=== PATIENT | male | born 1950 | race Caucasian/White ===

== ENCOUNTER 2016-11-23 11:24 | Day surgery (SDC) | payer MEDICARE, OTHER ==
[~2016-11-23 11:24] MED LIST: Lactated Ringers 1,000 ML IV SCH
--- NOTE | 2016-11-23 12:41 | PCM.PREANE ---
Preanesthetic Assessment - Anesthesia/Transfusion/Family Hx Anesthesia History: Prior Anesthesia Without Reaction Other Type of Anesthesia Reaction Comment: Denies any problems with anesthesia in the past. Family History of Anesthesia Reaction: No Transfusion History: No Prior Transfusion(s) - Review of Systems General: No Symptoms Pulmonary: No Symptoms Cardiovascular: No Symptoms Gastrointestinal: No Symptoms Neurological: No Symptoms Other: Reports: None - Physical Assessment NPO Status Date: 11/22/16 NPO Status Time: 19:00 O2 Sat by Pulse Oximetry: 97 Respiratory Rate: 16 Vital Signs: Last Vital Signs Temp 36.8 C 11/23/16 11:31 Pulse 65 11/23/16 11:31 Resp 16 11/23/16 11:31 BP 154/90 H 11/23/16 11:31 Pulse Ox 97 11/23/16 11:31 Height: 1.88 m Weight: 103.873 kg ASA Class: 2 Mental Status: Alert & Oriented x3 Airway Class: Mallampati = 1 Dentition: Reports: [place](s) ROM/Head Extension: Full Lungs: Clear to Auscultation, Normal Respiratory Effort Cardiovascular: Regular Rate, Regular Rhythm - Allergies Allergies/Adverse Reactions: Allergies Allergy/AdvReac Type Severity Reaction Status Date / Time No Known Allergies Allergy Verified 07/29/13 11:07 - Anesthesia Plan Pre-Op Medication Ordered: None - Acknowledgements Anesthesia Type Planned: MAC Pt an Appropriate Candidate for the Planned Anesthesia: Yes Alternatives and Risks of Anesthesia Discussed w Pt/Guardian: Yes Pt/Guardian Understands and Agrees with Anesthesia Plan: Yes PreAnesthesia Questionnaire - Past Health History Medical/Surgical History: Denies Medical/Surgical History Cardiovascular History: Reports: Hypertension Gastrointestinal History: Reports: Colon Polyp Genitourinary History: Reports: BPH Psychiatric History: Reports: Anxiety, Depression - Past Surgical History Head Surgeries/Procedures: Reports: None GI Surgical History: Reports: Colonoscopy, Hernia, Abdominal - SUBSTANCE USE Smoking Status *Q: Never Smoker Days Per Week of Alcohol Use: 2 Number of Drinks Per Day: 0 Total Drinks Per Week: 0 Recreational Drug Use History: No - HOME MEDS Home Medications: Home Meds Aspirin [Indy Chewable] 81 mg PO DAILY 07/29/13 [History] Dutasteride/Tamsulosin HCl [Mariela 0.5-0.4 MG] 1 tab PO DAILY 07/29/13 [History] FLUoxetine HCl [Prozac] 20 mg PO ACBRK 07/29/13 [History] Lisinopril 10 mg PO BRK 07/29/13 [History] - CURRENT (IN HOUSE) MEDS Current Meds: Current Medications Lactated Ringer's (Ringers, Lactated) 1,000 mls @ 125 mls/hr IV ASDIRECTED JOSE E Last Admin: 11/23/16 12:00 Dose: 125 mls/hr
[2016-11-23] MEDS ORDERED: Lidocaine 2% 5 ML SDV ONE (14:02)
[2016-11-23] MEDS ORDERED: fentaNYL 100 MCG/2 ML SDV ONE (14:03)
[2016-11-23] MEDS ORDERED: Midazolam 1 MG/ML 2 ML SDV ONE (14:03)
[2016-11-23] MEDS ORDERED: Propofol 200 MG/20 ML SDV ONE (14:03)
--- NOTE | 2016-11-23 15:24 | PCM.OPNOTE ---
- General Post-Op/Procedure Note Date of Surgery/Procedure: 11/23/16 Operative Procedure(s): Colonoscopy with cold, sigmoid, rectosigmoid and rectal polypectomies Pre Op Diagnosis: Personal history of colon polyps. Post-Op Diagnosis: Sigmoid, rectosigmoid and rectal polyps. Sigmoid diverticulosis. Anesthesia Technique: MAC (ASA II) Primary Surgeon: Christian Casas Engine Repairer Production: Kelin Nash Condition: Good Free Text/Narrative:: Dictation [id number] CPT CODE [id number]
[2016-11-23] MEDS ORDERED: Lactated Ringers 1,000 ML IV SCH (15:30)
--- NOTE | 2016-11-23 15:31 | PCM.POSTAN ---
POST ANESTHESIA ASSESSMENT - MENTAL STATUS Mental Status: Alert, Oriented - RESPIRATORY Respiratory Status: Respiratory Rate WNL, Airway Patent, O2 Saturation Stable - CARDIOVASCULAR CV Status: Pulse Rate WNL, Blood Pressure Stable - GASTROINTESTINAL GI Status: No Symptoms - PAIN Pain Score: 0 - POST OP HYDRATION Hydration Status: Adequate & Stable
--- NOTE | 2016-11-23 15:41 | PCM48HPAN ---
Post Anesthesia Note - EVALUATION WITHIN 48HRS OF ANESTHETIC Vital Signs in Normal Range: Yes Patient Participated in Evaluation: Yes Respiratory Function Stable: Yes Airway Patent: Yes Cardiovascular Function Stable: Yes Hydration Status Stable: Yes Pain Control Satisfactory: Yes Nausea and Vomiting Control Satisfactory: Yes Mental Status Recovered: Yes
[2016-11-23 16:07] VITALS: BP 129/68
--- NOTE | 2016-11-26 14:10 | OR ---
SURGEON: Christian Casas M.D. DATE OF PROCEDURE: 11/23/2016 OPERATION PERFORMED: Colonoscopy with cold sigmoid, rectosigmoid, and rectal polypectomies. ANESTHESIA: MAC. ASA CLASSIFICATION: II. PREOPERATIVE DIAGNOSIS: Personal history of colon polyps. POSTOPERATIVE DIAGNOSES: 1. Polyps encountered in the sigmoid colon, rectosigmoid junction, and rectum. 2. Sigmoid diverticulosis. DESCRIPTION OF PROCEDURE: The patient was taken to the endoscopy room and positioned on the endoscopy table in the left lateral decubitus position. Time-out was called for appropriate identification of the patient and procedure. Monitored anesthesia care was provided. The colonoscope was inserted into the rectum and advanced with moderate difficulty to the cecum where the colonoscope was retroflexed to visualize the ascending colon from below. The colonoscope was then straightened and slowly withdrawn. The cecum, ascending colon, hepatic flexure, transverse colon, splenic flexure, and descending colon showed no tumors, polyps, diverticula, or angiodysplastic changes. Moderate sigmoid diverticular disease was noted. Small polyps were encountered in the sigmoid colon, rectosigmoid junction, and rectum. All polyps were removed with the cold biopsy forceps and sent for separate histologic analysis. The colonoscope was withdrawn to the rectum and retroflexed to visualize the anal orifice from above. Again, no tumors or polyps were noted in the rectum. Moderate hemorrhoidal changes are noted, but no acute bleeding. The colonoscope was then straightened, the rectum aspirated, and the colonoscope removed. The patient tolerated the procedure well and was taken to recovery room in stable condition. MELISSA / YAO /[id number]
== END 2016-11-23 16:05 | disposition home or self-care (01) ==
LOC: MW.SDS 11:24
PROVIDERS: ATTEND Surgery
DX: Z12.11 Encounter for screening for malignant neoplasm of colon (principal); D12.5 Benign neoplasm of sigmoid colon; K62.1 Rectal polyp; Z86.010 Personal history of colon polyps; K57.30 Diverticulosis of large intestine without perforation or abscess without bleeding; Z79.82 Long term (current) use of aspirin; Z79.899 Other long term (current) drug therapy; Z98.890 Other specified postprocedural states
CPT/HCPCS: 45380; 88305; J2250; J3010; J7120; J2704

== ENCOUNTER 2020-01-15 10:05 | Day surgery (SDC) | payer MEDICARE, OTHER ==
[~2020-01-15 10:05] MED LIST changes: +Midazolam 1 MG/ML 2 ML SDV ONE; +Propofol 200 MG/20 ML SDV ONE
--- NOTE | 2020-01-15 10:47 | PCM.PREANE ---
Preanesthetic Assessment - Anesthesia/Transfusion/Family Hx Anesthesia History: Prior Anesthesia Without Reaction Other Type of Anesthesia Reaction Comment: Denies any problems with anesthesia in the past. Family History of Anesthesia Reaction: No Transfusion History: No Prior Transfusion(s) - Review of Systems General: No Symptoms Pulmonary: No Symptoms Cardiovascular: No Symptoms Gastrointestinal: No Symptoms Neurological: No Symptoms Other: Reports: None - Physical Assessment NPO Status Date: 01/14/20 Vital Signs: Last Vital Signs Temp 97.7 F 01/15/20 10:28 Pulse 71 01/15/20 10:28 Resp 16 01/15/20 10:28 BP 142/83 H 01/15/20 10:28 Pulse Ox 97 01/15/20 10:28 Height: 6 ft 2 in Weight: 104.326 kg ASA Class: 2 Mental Status: Alert & Oriented x3 Airway Class: Mallampati = 2 Dentition: Reports: Normal Dentition ROM/Head Extension: Full Lungs: Clear to Auscultation, Normal Respiratory Effort Cardiovascular: Regular Rate, Regular Rhythm - Allergies Allergies/Adverse Reactions: Allergies Allergy/AdvReac Type Severity Reaction Status Date / Time No Known Allergies Allergy Verified 01/11/20 12:40 - Blood Blood Available: No - Anesthesia Plan Pre-Op Medication Ordered: None - Acknowledgements Anesthesia Type Planned: General Anesthesia (tiva) Pt an Appropriate Candidate for the Planned Anesthesia: Yes Alternatives and Risks of Anesthesia Discussed w Pt/Guardian: Yes Pt/Guardian Understands and Agrees with Anesthesia Plan: Yes Additional Comments: PMH: htn PreAnesthesia Questionnaire - Past Health History Medical/Surgical History: Denies Medical/Surgical History HEENT History: Reports: None Cardiovascular History: Reports: Hypertension Respiratory History: Reports: Sleep Apnea Other Respiratory History: uses CPAP Gastrointestinal History: Reports: Colon Polyp Genitourinary History: Reports: BPH Musculoskeletal History: Reports: None Neurological History: Reports: None Psychiatric History: Reports: Anxiety, Depression Endocrine/Metabolic History: Reports: None Hematologic History: Reports: None Immunologic History: Reports: None Oncologic (Cancer) History: Reports: None Dermatologic History: Reports: None - Past Surgical History Head Surgeries/Procedures: Reports: None HEENT Surgical History: Reports: None Cardiovascular Surgical History: Reports: None Respiratory Surgical History: Reports: None GI Surgical History: Reports: Colonoscopy, Hernia, Abdominal Male Surgical History: Reports: None Endocrine Surgical History: Reports: None Neurological Surgical History: Reports: None Musculoskeletal Surgical History: Reports: None Oncologic Surgical History: Reports: None Dermatological Surgical History: Reports: None - SUBSTANCE USE Tobacco Use Status *Q: Never Tobacco User Recreational Drug Use History: No - HOME MEDS Home Medications: Home Meds Aspirin [Indy Chewable] 81 mg PO DAILY 07/29/13 [History] FLUoxetine HCl [Prozac] 20 mg PO ACBRK 07/29/13 [History] Lisinopril 10 mg PO BRK 07/29/13 [History] Naproxen Sodium [Aleve] 2 tab PO ASDIRECTED PRN 01/11/20 [History] Tamsulosin HCl [Flomax] 0.4 mg PO DAILY 01/11/20 [History] hydroCHLOROthiazide [Hydrochlorothiazide] 12.5 mg PO DAILY 01/11/20 [History] Krill/Om-3/DHA/EPA/Phospho/Ast [Woden-3 Krill Oil 1,000 mg] 1 tab PO DAILY 01/12/20 [History] Vitamin E 1 tab PO DAILY 01/12/20 [History] - CURRENT (IN HOUSE) MEDS Current Meds: Current Medications Lactated Ringer's (Ringers, Lactated) 1,000 mls @ 125 mls/hr IV ASDIRECTED JOSE E Last Admin: 01/15/20 10:40 Dose: 125 mls/hr Documented by: Discontinued Medications Midazolam HCl (Versed 1 Mg/Ml) Confirm Administered Dose 2 mg .ROUTE .STK-MED ONE Stop: 01/15/20 07:17 Propofol (Diprivan 20 Ml) Confirm Administered Dose 600 mg .ROUTE .STK-MED ONE Stop: 01/15/20 07:17
--- NOTE | 2020-01-15 12:53 | PCM.POSTAN ---
POST ANESTHESIA ASSESSMENT - MENTAL STATUS Mental Status: Alert, Oriented - VITAL SIGNS Vital Signs: Last Vital Signs Temp 97.7 F 01/15/20 10:28 Pulse 52 L 01/15/20 12:48 Resp 13 01/15/20 12:48 BP 118/63 01/15/20 12:48 Pulse Ox 96 01/15/20 12:48 - RESPIRATORY Respiratory Status: Respiratory Rate WNL, Airway Patent, O2 Saturation Stable - CARDIOVASCULAR CV Status: Pulse Rate WNL, Blood Pressure Stable - GASTROINTESTINAL GI Status: No Symptoms - POST OP HYDRATION Hydration Status: Adequate & Stable
--- NOTE | 2020-01-15 12:54 | PCM48HPAN ---
Post Anesthesia Note - EVALUATION WITHIN 48HRS OF ANESTHETIC Vital Signs in Normal Range: Yes Patient Participated in Evaluation: Yes Respiratory Function Stable: Yes Airway Patent: Yes Cardiovascular Function Stable: Yes Hydration Status Stable: Yes Pain Control Satisfactory: Yes Nausea and Vomiting Control Satisfactory: Yes Mental Status Recovered: Yes Vital Signs: Last Vital Signs Temp 97.7 F 01/15/20 10:28 Pulse 52 L 01/15/20 12:48 Resp 13 01/15/20 12:48 BP 118/63 01/15/20 12:48 Pulse Ox 96 01/15/20 12:48
--- NOTE | 2020-01-15 12:59 | PCM.OPNOTE ---
- General Post-Op/Procedure Note Date of Surgery/Procedure: 01/15/20 Operative Procedure(s): Colonoscopy with multiple cold polypectomies from the transverse and sigmoid colons and rectum. Pre Op Diagnosis: Hx of colon polyps. Post-Op Diagnosis: Transverse and sigmoid colon polyps. Rectal polyp. Diverticulosis. Anesthesia Technique: MAC (ASA II) Primary Surgeon: Christian Casas Paddle Dyeing Machine Operator: [place] Condition: Good Free Text/Narrative:: DICTATION [id number] CPT CODE [id number]
[2020-01-15] MEDS ORDERED: Lactated Ringers 1,000 ML IV SCH (13:00)
[2020-01-15 13:06] VITALS: BP 130/65; PULSE 53
--- NOTE | 2020-01-15 14:43 | OR ---
SURGEON: Christian Casas M.D. DATE OF PROCEDURE: 01/15/2020 OPERATION PERFORMED: Colonoscopy with multiple cold polypectomies from the transverse colon, sigmoid colon, and rectum. PRIMARY SURGEON: Christian Casas M.D. PATTERN STAMPER: DEBORA Perez student. ANESTHESIA: MAC. ASA CLASSIFICATION: II. PREOPERATIVE DIAGNOSIS: Personal history of colon polyps. POSTOPERATIVE DIAGNOSES: 1. Transverse colon, sigmoid colon, and rectal polyps. 2. Sigmoid diverticulosis. DESCRIPTION OF PROCEDURE: The patient was taken to the endoscopy room and positioned on the endoscopy table in the left lateral decubitus position. Time-out was called for appropriate identification of the patient and procedure. Monitored anesthesia care was provided. The colonoscope was inserted into the rectum and advanced with minimal difficulty to the cecum where the colonoscope was retroflexed to visualize the ascending colon from below. The colonoscope was then straightened and slowly withdrawn. The cecum, ascending colon, hepatic flexure, and proximal and mid transverse colon showed no tumors, polyps, diverticula, or angiodysplastic changes. There were 2 small polyps in different areas in the distal transverse colon. These were removed and sent for separate histologic analysis using the cold biopsy forceps. The colonoscope was then further withdrawn through the sigmoid colon where again a couple of other polyps were identified, one in the proximal and one in the mid sigmoid. Both of these were also sent for separate histologic analysis. Moderate diverticular changes were noted in the sigmoid colon. No stricture, spasm, or bleeding was noted. The colonoscope was then withdrawn to the rectum and again couple of small polyps were identified and removed with cold biopsy forceps. The colonoscope was then retroflexed to visualize the anal orifice from above. Again, no tumors or polyps were seen and there were no acute hemorrhoidal changes. The colonoscope was then straightened, the rectum aspirated, and the colonoscope removed. The patient tolerated the procedure well and was taken to recovery room in stable condition. MELISSA / YAO /[id number]
== END 2020-01-15 13:34 | disposition home or self-care (01) ==
LOC: MW.SDS 10:05
PROVIDERS: ATTEND Surgery
DX: Z12.11 Encounter for screening for malignant neoplasm of colon (principal); D12.5 Benign neoplasm of sigmoid colon; D12.8 Benign neoplasm of rectum; K57.30 Diverticulosis of large intestine without perforation or abscess without bleeding; Z86.010 Personal history of colon polyps; I10 Essential (primary) hypertension; G47.30 Sleep apnea, unspecified; Z99.89 Dependence on other enabling machines and devices; F41.9 Anxiety disorder, unspecified; F32.9 Major depressive disorder, single episode, unspecified; Z98.890 Other specified postprocedural states; Z79.899 Other long term (current) drug therapy
CPT/HCPCS: 45380; J2250; J2704; J7120